=== PATIENT | male | born 1945 | race Caucasian/White ===

== ENCOUNTER 2017-03-20 07:29 | Day surgery (SDC) | payer OTHER ==
[~2017-03-20] VITALS: Ht 177.8 cm; Wt 76.6 kg
[~2017-03-20 07:29] MED LIST: ASPIRIN325 MG PO; CPAP INH; CRESTOR20 MG PO; FISH OIL300 MG PO; MULTIVITAMINS1 EAC1 PO; VITAMIN D-40400 UNIT PO
[2017-03-20] MEDS ORDERED: LEVOTHROID (SY50 MCG PO (07:45)
== END 2017-03-20 10:08 | disposition disaster alternative care site (69) ==
LOC: GEND 07:29 → GSIP 07:29 → GPOC 07:30 → GEND 10:08
PROC: 0DBL8ZX Excision of Transverse Colon, Via Natural or Artificial Opening Endoscopic, Diagnostic (ICD-10-PCS; principal; 2017-03-20)
PROC: 0DBE8ZX Excision of Large Intestine, Via Natural or Artificial Opening Endoscopic, Diagnostic (ICD-10-PCS; 2017-03-20)
DX: D12.3 Benign neoplasm of transverse colon (principal); K64.8 Other hemorrhoids; E78.00 Pure hypercholesterolemia, unspecified; I25.2 Old myocardial infarction; I25.10 Atherosclerotic heart disease of native coronary artery without angina pectoris; M19.90 Unspecified osteoarthritis, unspecified site; G47.30 Sleep apnea, unspecified; Z95.0 Presence of cardiac pacemaker; Z98.890 Other specified postprocedural states; Z88.8 Allergy status to other drugs, medicaments and biological substances; Z79.82 Long term (current) use of aspirin; Z79.899 Other long term (current) drug therapy
CPT/HCPCS: J2001; J7030